=== PATIENT | male | born 1980 | race African-American/Black ===

== ENCOUNTER 2016-08-13 09:38 | Emergency (ER) | payer OTHER ==
[~2016-08-13] VITALS: Ht 180.3 cm; Wt 83.9 kg
[2016-08-13 09:38] VITALS: BP 140/65
[2016-08-13] MEDS ORDERED: Norco 10mg/325mg tab ORAL ONE (10:00)
[2016-08-13] MEDS ORDERED: Ketorolac 30mg Inj IV ONE (10:00)
--- NOTE | 2016-08-13 10:18 | Emergency Room Report ---
History of Present Illness General Chief Complaint: Chest Pain Source: Patient Present Illness HPI Patient presents with pleuritic left-sided chest pain Onset while in line to go to see a show Patient denies any recent travel denies any smoking history Denies any headache or visual changes patient has had a cold recently with mild cough Denies any abdominal pain denies any back or flank pain Pain is 7/10 Patient was brought in by paramedics and received nitroglycerin and aspirin which did not seem to make any difference with the pain Allergies: Coded Allergies: No Known Allergies (Unverified , 08/13/16) Patient History Past Medical History: see triage record Pertinent Family History: none Reviewed Nursing Documentation: PMH: Agreed, PSxH: Agreed Nursing Documentation-PMH Past Medical History: No Stated History Review of Systems All Other Systems: negative except mentioned in HPI Physical Exam Vital Signs Date Time Temp Pulse Resp B/P Pulse Ox O2 Delivery O2 Flow Rate FiO2 08/13/16 09:32 98.1 63 18 131/86 99 Room Air Sp02 EP Interpretation: reviewed, normal General Appearance: mild distress - Patient appears concerned Head: normocephalic, atraumatic Eyes: bilateral eye EOMI, bilateral eye PERRL ENT: hearing grossly normal, normal pharynx, TMs + canals normal, uvula midline Neck: full range of motion, supple, no meningismus, no bony tend Respiratory: lungs clear, normal breath sounds, no rhonchi, no respiratory distress, no retraction, no accessory muscle use Cardiovascular #1: normal peripheral pulses, regular rate, rhythm, no edema, no gallop, no JVD, no murmur Gastrointestinal: normal bowel sounds, non tender, soft, no mass, no organomegaly, non-distended, no guarding, no hernia, no pulsatile mass, no rebound Genitourinary: no CVA tenderness Musculoskeletal: normal inspection Neurologic: oriented x3, responsive, tobacco blender III-XII nml as tested, motor strength/ tone normal, sensory intact Psychiatric: mood/affect normal Skin: normal color, no rash, warm/dry, palpation normal Lymphatic: normal inspection, no adenopathy Medical Decision Making Diagnostic Impression: Primary Impression: Chest pain Additional Impression: Pleurisy ER Course Patient is a fairly complex patient with multiple differential to consideration including but not limited to cardiac cardiopulmonary and vascular emergencies Patient's EKG looked appropriate there is some questionable mild early re\re pole diffusely Chest x-ray is normal Patient was observed for over 2.5 half hours remains very comfortable and appropriate Continues to saturate well on room air At this time I do not suspect any obvious pulmonary embolism The patient is stable for close patient followup EKG Diagnostic Results Rate: normal Rhythm: NSR ST Segments: other - Evidence of early repol Rhythm Strip Diag. Results EP Interpretation: yes Rate: 77 Rhythm: NSR, no PVC's, no ectopy Chest X-Ray Diagnostic Results EP Interpretation: Yes Findings: no consolidation, no effusion, no pneumothorax Number of Views: 1 Last Vital Signs Date Time Temp Pulse Resp B/P Pulse Ox O2 Delivery O2 Flow Rate FiO2 08/13/16 09:38 98.1 62 15 140/65 99 Room Air Status: improved Disposition: HOME, SELF-CARE Condition: Improved Scripts Ibuprofen* (MOTRIN*) 600 Mg Tablet 600 MG ORAL Q8H Y for For Pain, #20 TAB 0 Refills Prov: KAREN MUELLER D.O. 08/13/16 Referrals: NOT CHOSEN [facility]/,REFERRING (PCP) Additional Instructions: Patient is provided with the discharge instructions notified to follow up with primary doctor in the next 2-3 days otherwise return to the er with any worsening symptoms. KAREN MUELLER D.O. Aug 13, 2016 10:18
[2016-08-13 10:42] VITALS: BP 135/76
--- NOTE | 2016-08-13 11:03 | Diagnostic Imaging Report ---
Indication: Dyspnea Comparison: None A single view chest radiograph was obtained. Findings: Cardiomediastinal appearance is within normal limits for age. Pulmonary vascularity is appropriate. The diaphragmatic contour is smooth and costophrenic angles are sharp. No pleural effusions are identified. The bones are unremarkable. Impression: No acute findings
[2016-08-13] MEDS ORDERED: IBUPROFEN600 MG ORAL (12:38)
[2016-08-13 12:45] VITALS: BP 135/76
--- NOTE | 2016-08-15 19:49 | Cardiology Report ---
APPROVED REPORT EKG Measurement Heart [id number] Normal sinus rhythm Early repolarization Normal ECG
== END 2016-08-13 12:45 | disposition home or self-care (01) ==
LOC: EDBD 09:38 → EMR 10:15
DX: R07.9 Chest pain, unspecified (principal); R09.1 Pleurisy
CPT/HCPCS: 71010; 93005; 96374